=== PATIENT | male | born 1975 | race Caucasian/White ===

== ENCOUNTER 2017-09-20 21:59 | Inpatient (IN) ==
[2017-09-21 02:05] LABS: Basophils % 0.3 %; Eosinophils # 0.4 K/mcL (0.0-0.6); Eosinophils % 3.4 %; Hematocrit 41.3 % (37.5-50.1); Hemoglobin 14.3 g/dL (12.9-16.9); Immature Granulocytes % 0.3 % (0-4); Lymphocytes % 37.4 %; Mean Corpuscular HGB Conc 34.6 g/dL (31.6-35.5); Mean Corpuscular Hemoglobin 32.4 pg (28.0-33.3); Mean Corpuscular Volume 93.7 fL (83.0-100.0); Mean Platelet Volume 11.4 fL (9.4-12.4); Monocytes # 0.5 K/mcL (0.0-1.3); Monocytes % 4.7 %; Neutrophils # 5.7 K/mcL (1.6-8.9); Platelet Count 149 K/mcL (140-400); Red Blood Count 4.41 M/mcL (4.19-5.50); Red Cell Distribution Width 12.5 % (11.5-14.5); Segmented Neutrophils % 53.9 %
[2017-09-21 02:13] LABS: Prothrombin Time 11.6 Seconds (9.4-12.1)
[2017-09-21 02:15] LABS: Activated Partial Thrombo Time 62.5 Seconds (26.0-36.0)
[2017-09-21] MEDS: *HR* OxyCODONE/APAP 10/325 TABLET PO PRN ×3 (02:16→17:19)
[2017-09-21 02:30] LABS: BUN/Creatinine Ratio 17 (6-26); Blood Urea Nitrogen 20 mg/dL (6-20); Calcium 8.8 mg/dL (8.6-10.3); Carbon Dioxide 23 mEq/L (23-29); Chloride 110 mEq/L (98-107); Glucose 126 mg/dL (70-105); Osmolality,Calculated 292 (280-300); Potassium 3.1 mEq/L (3.5-5.1); Sodium 139 mEq/L (136-145); eGFR For African Americans > 60 (> 60); eGFR For Non-African Americans > 60 (> 60)
[2017-09-21 02:34] LABS: Troponin I 7.37 ng/mL (< 0.04)
[2017-09-21] MEDS ORDERED: Naloxone 0.4 MG/ML INJ IVP PRN (02:38)
[2017-09-21] MEDS ORDERED: Heparin 25,000 UNIT/500 ML D5W 25,000 UNIT/500 ML BAG IVC SCH (02:45)
[2017-09-21] MEDS ORDERED: *HR* Heparin 5,000 UNIT/ML VIAL IVP PRN ×2 (02:50)
[2017-09-21] MEDS ORDERED: *HR* Heparin 5,000 UNIT/ML VIAL IVP ONE (02:50)
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
[2017-09-21] MEDS ORDERED: 0.9 % Sodium Chloride 1,000 ML IVC SCH (08:45)
--- NOTE | 2017-09-21 08:58 | Pre-Sedation Evaluation ---
Pre-sedation evaluation - Pre-sedation checklist Date of procedure: 09/21/17 Procedure: [facility] Recent Vitals: Last Vital Signs Temp 97.8 F 09/21/17 07:12 Pulse 66 09/21/17 07:12 Resp 16 09/21/17 07:12 BP 118/61 09/21/17 07:12 Pulse Ox 96 09/21/17 07:12 H&P (including ROS) documented in medical record: Yes Previous reaction to sedatives/anesthetics: No Dietary Status: NPO after Midnight Airway Assessment: Patient can open mouth completely, TMJ function normal Dentition: No loose teeth or bridges ASA Classification *see protocol: CLASS II-Mild systemic disease, E-EMERGENCY- Add to any of the above to indicate emergent Plan of Care: Pt appropriate candidate for procedure/moderate/conscious sedation , Risks/benefits of procedure/sedation discussed w/ patient/family Cardiac Registry (Cardio Only) - Functional Capacity Functional Capacity: >=4 METS without symptoms - Clincal Frailty Scale Clinical Frailty Scale: Managing Well
[2017-09-21] MEDS: ALPRAZolam 1 MG TABLET PO PRN ×2 (08:59→17:22)
[2017-09-21] MEDS ORDERED: ISOVUE-370 200 ML INFUS..BTL IV ONE (09:01)
[2017-09-21] MEDS ORDERED: Verapamil 5 MG/2 ML VIAL ONE (09:01)
[2017-09-21] MEDS ORDERED: *HR* Heparin 10,000 UNIT/10 ML VIAL ONE (09:01)
[2017-09-21] MEDS ORDERED: Nitroglycerin 1,000 MCG/10 ML VIAL IV ONE (09:01)
[2017-09-21] MEDS ORDERED: Heparin 1,000 UNITS/500 mL 500 ML ONE (09:01)
[2017-09-21] MEDS ORDERED: 0.9 % Sodium Chloride 1,000 ML ONE ×2 (09:01→09:02)
[2017-09-21] MEDS: Aspirin 81 MG TAB.CHEW PO SCH (09:07)
[2017-09-21] MEDS ORDERED: *HR* Midazolam HCl 2 MG/2 ML VIAL ONE ×3 (09:35→09:58)
[2017-09-21] MEDS ORDERED: *HR* FentaNYL (PF) 100 MCG/2 ML VIAL ONE ×2 (09:35→09:58)
[2017-09-21] MEDS ORDERED: Tirofiban 12.5 MG/250ML 12.5 MG/250 ML BAG ONE (10:04)
[2017-09-21] MEDS ORDERED: *HR* Ticagrelor 90 MG TABLET ONE (10:19)
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
[2017-09-21] MEDS ORDERED: Acetaminophen 325 MG TABLET PO PRN (10:32)
[2017-09-21] MEDS ORDERED: Ondansetron 4 MG/2 ML VIAL IVP PRN (10:35)
--- NOTE | 2017-09-21 10:43 | Invasive Diagnostic Lab Proc ---
Name: Carmelina Fountain Date of Study: 09/21/2017 Date: 1975 Ht: 71.0in Medical Record#: [id number] Age: 42 Wt: 113.32lb Gender: Male BSA: 1.66 Order #: [id number] BMI: 15.81 Physicians Procedure Physician: Will Ariza MD, [facility] Referring MD: Referring MD: Staff Name Position Time In Yolette Boothe RN Umbrella Tipper Hand Marisol Breen RN Umbrella Tipper Hand Trang Wiley RT Monitor 09:33 AM Marisol Breen RN Umbrella Tipper Hand 09:33 AM Yolette Boothe RN Umbrella Tipper Hand 09:34 AM Cory Vaughan RT (R) Scrub 09:34 AM Indications Indication Non-Stemi Procedures Performed Procedure L HRT ARTERY/VENTRICLE ANGIO PRQ CARD SANTOSH STENT W/ANGIO 1 VSL Pre-Procedure Checklist Informed consent is complete signed and on chart. H&P is on chart. ID band is on and ID verified with patient. Patient NPO for procedure The procedure was described for the patient and questions were answered. Blood Pressure: 162/99 ECG is on chart. Rhythm: NSR Plan of Care Patient will tolerate the procedure without complications. Adequate level of comfort will be maintained. Hemodynamics will remain stable Patient will recover from procedure without complications. Respiratory function will be maintained. Cardiac rhythm will remain stable. Patient temperature will be maintained. Patient and/or family have verbalized understanding of the procedure. Patient Education Chief Complaint/Reason for Test: Cardiac Cath Developmental Category: Adult (18-64 years) Developmentally Appropriate for Age: Yes Learning Barriers: None Education Needs: Procedure Education Method: Verbal Information Taught: Cardiac Cath Educational Evaluation: Able to repeat information Intravenous Access Time IV Size Location DC'd Fluid/Drip Rate Units RN 20g 1 /" Patent On Arrival Lt Arm 0.9NaCl 25 ml/hr Allergies No Known Allergies Vital Signs Time BP (mmHg) HR (bpm) O2 Sat. RR (bpm) LOC 09:25 AM 118 / 61 66 96 % 16 5 = Fully awake and oriented or at pre-proc level 09:37 AM / % 5 = Fully awake and oriented or at pre-proc level 09:37 AM / % 4 = Oriented but drowsy 09:52 AM / % 4 = Oriented but drowsy 09:36 AM 162 / 99 61 100 % 09:40 AM 156 / 89 59 100 % 09:45 AM 163 / 98 58 96 % 09:50 AM 164 / 94 54 97 % 09:55 AM 166 / 92 62 93 % 10:00 AM 150 / 78 65 90 % 10:05 AM 154 / 94 62 93 % 10:10 AM 148 / 93 60 92 % 10:15 AM 144 / 77 61 91 % 10:20 AM 149 / 90 58 % Procedural Medications Time Medication Dose Units Method Given By 09:36 AM Oxygen 2 L/min nasal cannula Yolette Boothe RN 09:49 AM Lidocaine 2% 0.5 ml Subcutaneous Will Ariza MD, FAC 09:50 AM Heparin 2000 units Nitroglycerin 200 mcg Verapamil 2.5 mg Intraarterial Will Ariza MD, FAC 09:52 AM Versed 2 mg Intravenous Yolette Boothe RN 09:52 AM Fentanyl 50 mcg Intravenous Yolette Boothe RN 09:56 AM Versed 1 mg Intravenous Yolette Boothe RN 09:56 AM Fentanyl 25 mcg Intravenous Yolette Boothe RN 09:58 AM Nitroglycerin 200 mcg Intracoronary Will Ariza MD 10:04 AM Heparin 3000 units Intravenous Yolette Boothe RN 10:05 AM Aggrastat Bolus: 58 ml Intravenous Yolette Boothe RN 10:05 AM Aggrastat 12.5mg/250ml 10.5 ml/hr Intravenous Yolette Boothe RN 10:13 AM Nitroglycerin 200 mcg Intracoronary Will Ariza MD 10:25 AM Brilinta 180 mg Orally Yolette Boothe RN ASA Classification: CLASS II- Mild systemic disease (i.e. well-controlled diabetes, hypertension, asthma, cigarette smoking) Abilio Score Preprocedure Postprocedure Activity 2- Moves 4 extremities sustained head lift Activity 2- Moves 4 extremities sustained head lift Circulation 2- SBP +/= 20 points of pre-anesthetic level Circulation 2- SBP +/= 20 points of pre-anesthetic level Consciousness 2- Awake and alert oriented x 3 Consciousness 2- Awake and alert oriented x 3 O2 Saturation 2- Able to maintain O2 satruation of 92% on room air O2 Saturation 2- Able to maintain O2 satruation of 92% on room air Respiratory 2- Able to deep breathe and cough well Respiratory 2- Able to deep breathe and cough well Total Score 10 Total Score 10 Contrast Agent: Isovue Diagnostic Contrast: 74 ml Total Contrast: 74 ml Fluoro Dose: 5362 mGy Activated Clotting Time Time Seconds to Clot 10:04 AM 165 Procedure Log Time Note Enter By 09:33 AM CathStat 09:33 AM Pt arrived to seed laboratory assistant 2 at 09:33 09:33 AM Trang Wiley RT Position: Monitor Time in: 09:33 ner 09:34 AM Marisol Breen RN Position: Umbrella Tipper Hand Time in: :33 ner 09:34 AM Yolette Boothe RN Position: Umbrella Tipper Hand Time in: :34 09:34 AM Cory Vaughan RT (R) Position: Scrub Time in: :34 09:34 AM Patient charges- Angio tray pack, Navilyst 3mm J, Pulse Oximetry and ACIST tubing and transducer kkall:34 AM Case Delayed No kk:34 AM Hair removed from procedure site in holding area using clippers. Right wrist prepped with Chloraprep by Cory Vaughan (R), then patient was draped. Skin intact. kk:34 AM Physician arrived :34 :34 AM ASA Class CLASS II- Mild systemic disease (i.e. well-controlled diabetes, hypertension, asthma, cigarette smoking) kkallner :34 AM Meet and greet completed :34 AM Sign in performed according to hospital policy. kk 09:34 AM Procedure start :34 :34 AM Vitals capture started with the following parameters, Patient=Adult, Interval=5 min, Initial Obfobjdg=701 mmHg, Deflation Rate=5 mmHg, Cuff placed on Right Arm 09:36 AM HR=61 bpm, JVBW=922/99 mmhg, ScR8=060 % 09:36 AM Time: 09:36 Oxygen on at 2 L/min per nasal cannula by Yolette Boothe RN allner 09:37 AM Time: 09:37 Patient comfortable and pain free: Yes all:37 AM Time: 09:37LOC: 5 = Fully awake and oriented or at pre-proc level [email or web address] 09:37 AM Clinical Presentation: Non-STEMI [email or web address] 09:40 AM HR=59 bpm, OAAT=521/89 mmhg, EiB6=623.0 % 09:45 AM HR=58 bpm, GQNE=597/98 mmhg, SpO2=96.0 % 09:46 AM Pressure channel 1 zeroed. 09:49 AM Time out performed according to hospital policy 09:50 AM Time: 09:49 .5 ml Lidocaine 2% to right radial Subcutaneous Given by Will Ariza MD, FACC 09:50 AM HR=54 bpm, ADED=127/94 mmhg, SpO2=97.0 % 09:52 AM Time: 09:37 Patient comfortable and pain free: Yes 09:52 AM Time: 09:52 Versed 2 mg Intravenous Given by Yolette Boothe RN 09:52 AM Time: 09:52 Fentanyl 50 mcg Intravenous Given by Yolette Boothe RN alfred 09:52 AM Time: 09:37LOC: 4 = Oriented but drowsy 09:53 AM Access obtained by percutaneous puncture. 6Fr 10cm Terumo Glidesheath sheath placed in right Radial artery. [id number] 09:54 AM Time: 09:50 Patient given 2000 units Heparin, 200 mcg Nitroglycerin, and 2.5 mg Verapamil Intraarterial by Will Ariza MD, [facility]. This is given to reduce risk of vessel spasm and thrombosis. kk 09:55 AM 5Fr TIG catheter inserted over the wire [facility] 09:55 AM wire removed 09:55 AM 0.035 145cm VSI Avinash-Torque wire [id number] all 09:55 AM HR=62 bpm, IGHD=335/92 mmhg, SpO2=93.0 % 09:56 AM Time: 09:56 Versed 1 mg Intravenous Given by Yolette Boothe RN :56 AM Time: 09:56 Fentanyl 25 mcg Intravenous Given by Yolette Boothe RN 09:56 AM wire removed 09:56 AM Recorded Pressure: Ao, HR=62, Condition=Condition 1 (Aorta) Ao 130/91/109 09:57 AM LCA angiography performed in multiple views. kk 09:57 AM TIG repositioned into RCA kkall 09:59 AM Time: 09:58 Nitroglycerin 200 mcg Intracoronary Given by Will Ariza MD alfred 09:59 AM Recorded Pressure: Ao, HR=64, Condition=Condition 1 (Aorta) Ao 119/83/101 10:00 AM Catheter removed [email or web address] 10:00 AM Coronary Dominance: right [email or web address] 10:00 AM 5Fr Pigtail catheter inserted over the wire DN [email or web address] 10:00 AM HR=65 bpm, BBNU=999/78 mmhg, SpO2=90.0 % 10:00 AM Catheter selectively placed in left ventricle [email or web address] 10:01 AM pressures recorded [email or web address] 10:01 AM Recorded Pressure: LV, HR=72, Condition=Condition 1 (Left Ventricle) LV 115/17/22 10:01 AM Recorded Pressure: LV, Ao, HR=65, Condition=Condition 1 (Left Ventricle) LV 135/7/18, (Aorta) Ao 134/66/97 10:02 AM Catheter removed [email or web address] 10:02 AM Lesion found in Mid LAD. Pre Stenosis: 60 Pre RICK Flow: [email or web address] 10:02 AM Lesion found in Mid RCA. Pre Stenosis: 100 Pre RICK Flow: 0: No Flow/No perfusion [email or web address] 10:02 AM Left Main Coronary Artery with 0% stenosis [email or web address] 10:02 AM Proximal Left Anterior Descending Coronary Artery with 0% stenosis. If graft is supplying this territory, 0 % stenosis. [email or web address] 10:02 AM Mid/Distal Left Anterior Descending Coronary Artery and diagonal branches with 60% stenosis. If graft is supplying this area, 0 % stenosis kkallner 10:02 AM Circumflex, Obtuse Marginal, Left Posterior Descending, and Left Posterolateral Coronary Arteries with 0 % stenosis. If graft is supplying this area, 0 % stenosis kkallner 10:02 AM Right Coronary, Right Posterior Descending Arteries with Right Posterolateral and Acute Marginal branches with 100 % stenosis. If graft is supplying this area, 0 % stenosis kkallner 10:02 AM Ramus with 0% stenosis. If graft is supplying this area, 0 % stenosis kkallner 10:03 AM ACT drawn kkallner 10:03 AM PCI lesion in Mid RCA. Pre Stenosis: 100 Pre RICK Flow: 0: No Flow/No perfusion kkallner 10:03 AM 6Fr JR 4 Runway guide catheter was used to cannulate the PCI vessel successfully. reused? No kkallner 10:04 AM wire removed kkallner 10:04 AM At 10:04 the ACT was 165 seconds. [email or web address] 10:05 AM Time: 10:04 Heparin 3000 units Intravenous Given by Yolette Boothe RN kkallner 10:05 AM HR=62 bpm, VIRN=033/94 mmhg, SpO2=93.0 % 10:05 AM Time: 10:05 Aggrastat Bolus: 58 ml Intravenous Given by Yolette Boothe RN Doe pump [email or web address] 10:05 AM .014 Prowater 180cm guide wire across target lesion- successful. reused? No [email or web address] 10:05 AM Time: 10:05 Aggrastat 12.5mg/250ml 10.5 ml/hr Intravenous Given by Yolette Boothe RN Doe pump [email or web address] 10:06 AM 2.5 mm x 12 mm Emerge Monorail balloon across target lesion- successful. reused? No [email or web address] 10:07 AM Time: 09:52 Patient comfortable and pain free: Yes [email or web address] 10:07 AM Balloon inflated @ 6 kaci for 12 seconds kkallner 10:08 AM Time: 09:52LOC: 4 = Oriented but drowsy [email or web address] 10:08 AM Balloon inflated @ 12 kaci for 12 seconds [email or web address] 10:08 AM Balloon inflated @ 10 kaci for 18 seconds kkallner 10:09 AM Recorded Pressure: Ao, HR=60, Condition=Condition 1 (Aorta) Ao 125/85/104 10:09 AM Balloon inflated @ 10 kaci for 13 seconds [email or web address] 10:10 AM HR=60 bpm, JLJZ=890/93 mmhg, SpO2=92.0 % 10:11 AM Balloon catheter removed intact. [email or web address] 10:11 AM 3.5mm x 20mm Synergy drug-eluting stent across target lesion- successful Lot [id number] [email or web address] 10:12 AM Stent deployed @ 16 kaci for 17 seconds [email or web address] 10:13 AM Time: 10:13 Nitroglycerin 200 mcg Intracoronary Given by Will Ariza MD kk 10:15 AM Stent delivery system removed intact. [email or web address] 10:15 AM guide wire removed kkallner 10:15 AM HR=61 bpm, PQMY=866/77 mmhg, SpO2=91.0 % 10:15 AM catheter and wire removed kkallner 10:17 AM Procedure completed at 10:17 09/21/2017 [email or web address] 10:17 AM Did you address RICK flow and Dominance? Yes [email or web address] 10:19 AM Sign out completed: Radiation Dose 779.84 mGy, 5361.68 cGy/cm2 Fluoro Time: 4.6 Isovue 370 - 200ml contrast 74 ml given by Will Ariza MD, FAC. Complications: NoneCardiac Rehab Consult needed: YesConfirmed administered medications: Yes [email or web address] 10:19 AM Isovue 370 - 200ml,1 Bottle(s) used. [email or web address] 10:19 AM 11 ml air in Vasc Band. [email or web address] 10:19 AM Estimated Blood Loss: minimal kkallner 10:20 AM Post ECG NSR kkallner 10:20 AM Post Blood Pressure 144/77 kkallner 10:20 AM 10:20 Post Pulses Rt Radial 1+ [email or web address] 10:20 AM HR=58 bpm, IATQ=357/90 mmhg 10:22 AM Time: 10:07 Patient comfortable and pain free: Yes [email or web address] 10:22 AM Information taught Cardiac Cath and Vasc Band kkallner 10:23 AM Information taught PLASTIC DESIGN APPLIER/Stent kkallner 10:23 AM Education needs Procedure, Plan of Care, and Responsibilities of Patient in Care [email or web address] 10:23 AM Learning barriers :None kkallner 10:23 AM Education Methods Verbal kkallner 10:23 AM Education evaluation Able to repeat information [email or web address] 10:23 AM Site status No bleeding/hematoma - Rt Wrist as reported by Cory Vaughan RT (R) at 10:23 [email or web address] 10:24 AM Report given to Bekah CARDONA Pt taken to 2NE Room #35. 10:23 [email or web address] 10:26 AM Time: 10:25 Brilinta 180 mg Orally Given by Yolette Boothe RN kkallner 10:26 AM Plavix, Effient or Brilinta given Yes kkallner 10:26 AM Delay to floor No [email or web address] 10:27 AM Patient out of room: 10:27 kkallner 10:27 AM Family placed in consult room. [email or web address] 10:27 AM Complications: None [email or web address] 10:27 AM Fluoro Time: 4.6 kkallner 10:27 AM Isovue 370 - 200ml contrast 74 ml given by Will Ariza. [email or web address] 10:27 AM Radiation Dose 779.84 mGy kkallner 10:28 AM Lesion found in Distal RCA. Pre Stenosis: 60 Pre RICK Flow: [email or web address] 10:29 AM Lesion found in Right PDA. Pre Stenosis: 40 Pre RICK Flow: [email or web address] 10:30 AM Lesion found in RPLB. Pre Stenosis: 50 Pre RICK Flow: [email or web address] Complications Complication None None Hemodynamics Pressures Site Systolic/A Wave Diastolic/V Wave Mean AO 130 91 109 AO 119 83 101 LV 115 17 22 LV 135 7 18 AO 134 66 97 AO 125 85 104 Post Procedure Information Blood Pressure: 144/77 mmHg Rhythm: NSR Post procedural instructions were given Site Checks Time Location Status Staff Sheath In? Note 10:23 AM Rt Wrist No bleeding/hematoma Cory Vaughan RT (R) Pulses Time Site Pre-Procedure Post-Procedure Note 09/21/2017 9:26:00 AM Bilateral DP & PT 2+ 09/21/2017 9:26:00 AM 10:20:00 AM Rt Radial 1+ Updated by Trang Wiley RT (R) on 09/21/2017 10:34:06 AM electronically signed on 09/21/2017 10:34:36 AM with status of Final
[2017-09-21] MEDS ORDERED: Tirofiban 12.5 MG/250ML 12.5 MG/250 ML BAG IVC SCH (10:45)
--- NOTE | 2017-09-21 12:10 | Event Note ---
Date of Encounter: 09/21/17 Time of Encounter: 12:00 - Cardiology Event Note Patient threatening to leave AMA, states wants to smoke. Offered nicotine replacement, patient refuses. Will order patch in case he elects to stay overnight as recommended s/p PCI to RCA. Discussed with Dr. Covarrubias and Dr. Ariza. Rx sent to [facility] for brilinta and aspirin. Recommended uninterrupted DAPT (asa + brilinta) for a minimum of 1 year. Will coordinate outpatient f/u.
[2017-09-21] MEDS ORDERED: Perflutren Lipid Microsphere 1.3 ML in 0.9 % Sodium Chloride 8.7 ML IVP ONE (17:06)
[2017-09-21] MEDS: Nicotine 21 MG PATCH.TD24 TD SCH (17:19)
[2017-09-21] MEDS: *HR* Ticagrelor 90 MG TABLET PO SCH (19:59)
[2017-09-21] MEDS: amLODIPine 5 MG TABLET PO SCH (19:59)
[2017-09-22 04:52] LABS: BUN/Creatinine Ratio 14 (6-26); Blood Urea Nitrogen 15 mg/dL (6-20); Calcium 9.5 mg/dL (8.6-10.3); Carbon Dioxide 19 mEq/L (23-29); Chloride 111 mEq/L (98-107); Glucose 110 mg/dL (70-105); Osmolality,Calculated 283 (280-300); Potassium 3.7 mEq/L (3.5-5.1); Sodium 136 mEq/L (136-145); eGFR For African Americans > 60 (> 60); eGFR For Non-African Americans > 60 (> 60)
--- NOTE | 2017-09-22 06:20 | Electrocardiograph Report ---
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
[2017-09-22 07:06] VITALS: BP 133/81
--- NOTE | 2017-09-22 08:15 | Internal Med Progress Note ---
Date of Encounter: 09/22/17 - Assessment and plan (1) NSTEMI (non-ST elevated myocardial infarction) Current Visit: Yes Status: Acute (2) Chest pain Current Visit: Yes Status: Acute Qualifiers: Chest pain type: chest pain due to myocardial ischemia Ischemic chest pain type: unstable angina pectoris Qualified Code(s): I20.0 - Unstable angina (3) Elevated troponin Current Visit: Yes Status: Acute (4) Nicotine dependence, uncomplicated Current Visit: Yes Status: Acute Qualifiers: Nicotine product type: cigarettes Qualified Code(s): F17.210 - Nicotine dependence, cigarettes, uncomplicated (5) Hypertension Current Visit: Yes Status: Acute Qualifiers: Hypertension type: essential hypertension Qualified Code(s): I10 - Essential (primary) hypertension (6) Bradycardia Current Visit: Yes Status: Acute (7) DVT prophylaxis Current Visit: Yes Status: Acute (8) PTSD (post-traumatic stress disorder) Current Visit: Yes Status: Acute (9) Chronic pain Current Visit: Yes Status: Acute Qualifiers: Chronic pain type: other chronic pain Qualified Code(s): G89.29 - Other chronic pain (10) GERD (gastroesophageal reflux disease) Current Visit: Yes Status: Acute Qualifiers: Esophagitis presence: esophagitis presence not specified Qualified Code(s) : K21.9 - Gastro-esophageal reflux disease without esophagitis (11) Hypokalemia Current Visit: Yes Status: Acute - Time Spent With Patient Total time spent is greater than 50% in coordination of care (as documented) at patient's floor/unit and/or counseling patient: - Constitutional Vitals: Temp Pulse Resp BP Pulse Ox 97.8 F 60 16 133/81 96 09/22/17 07:03 09/22/17 07:03 09/22/17 07:03 09/22/17 07:03 09/22/17 07:03 General appearance: Present: mild distress, A&O X 3, pleasant Internal Medicine: Result - Labs CBC & Chem 7: 09/21/17 01:56 09/22/17 04:20 Labs: BMP 09/22/17 04:20 Sodium 136 Potassium 3.7 Chloride 111 H Carbon Dioxide 19 L BUN 15 Creatinine 1.11 Glucose 110 H Calcium 9.5 Cardiac Enzymes 09/21/17 Range/Units 08:03 Troponin I 5.42 H* (< 0.04) ng/mL - ABG Interpretation ABG results: PT/INR, D-dimer PT 11.6 Seconds (9.4-12.1) 09/21/17 01:55 D-Dimer 249 ng/mLFEU (0-500) 09/21/17 11:09 Consult Discharge Plan - Plan Instructions: Myocardial Infarction (DC), Chest Pain (DC), Chronic Hypertension (DC), Cigarette Smoking and Your Health, Exchange Specialist (GEN) Referrals: Delia Dow CNP [Primary Care Provider] -
--- NOTE | 2017-09-22 09:09 | Discharge Summary ---
<Juan Pantoja - Last Filed: 09/22/17 19:06> Orders not resulted at time of discharge: Pending orders 09/21/17 10:35 ECG 12 lead ECG [ECG] Stat 09/22/17 06:00 ECG 12 lead ECG [ECG] AM 0600 Date of Encounter: 09/22/17 - Discharge Diagnosis (1) NSTEMI (non-ST elevated myocardial infarction) Priority: Primary Status: Acute (2) Chest pain Priority: Primary Status: Acute Qualifiers: Chest pain type: chest pain due to myocardial ischemia Ischemic chest pain type: unstable angina pectoris Qualified Code(s): I20.0 - Unstable angina (3) Elevated troponin Priority: Secondary Status: Acute (4) Nicotine dependence, uncomplicated Priority: Secondary Status: Chronic Qualifiers: Nicotine product type: cigarettes Qualified Code(s): F17.210 - Nicotine dependence, cigarettes, uncomplicated (5) Hypertension Priority: Secondary Status: Chronic Qualifiers: Hypertension type: essential hypertension Qualified Code(s): I10 - Essential (primary) hypertension (6) Bradycardia Priority: Secondary Status: Resolved (7) DVT prophylaxis Status: Acute (8) PTSD (post-traumatic stress disorder) Priority: Secondary Status: Chronic (9) Chronic pain Status: Acute Qualifiers: Chronic pain type: other chronic pain Qualified Code(s): G89.29 - Other chronic pain (10) GERD (gastroesophageal reflux disease) Priority: Secondary Status: Chronic Qualifiers: Esophagitis presence: esophagitis presence not specified Qualified Code(s) : K21.9 - Gastro-esophageal reflux disease without esophagitis (11) Hypokalemia Priority: Secondary Status: Resolved (12) Tobacco abuse Priority: Secondary Status: Chronic Hospital course: Mr. Fountain is a 42 year old male - Time Spent with Patient Total time spent providing and/or coordinating discharge services: 29min - Discharge Medications Prescriptions: Aspirin Enteric Coated [Aspirin EC] 81 mg PO DAILY #30 tablet. Atorvastatin [Lipitor] 40 mg PO HS #30 tablet Ticagrelor [Brilinta] 90 mg PO BID #60 tablet Home Medications: ALPRAZolam [Xanax 1 MG Tablet] 1 mg PO TID PRN 07/22/16 [History] Amlodipine Besylate 10 mg PO DAILY 07/22/16 [History] Carvedilol [Coreg] 12.5 mg PO BID 07/22/16 [History] Omeprazole [PriLOSEC] 20 mg PO BID PRN 07/22/16 [History] OxyCODONE/APAP 10/325 [Percocet 10/325 MG] 1 each PO Q6HR PRN #39 tablet [Rx] Atorvastatin [Lipitor] 40 mg PO HS 09/21/17 [History] Gabapentin [Neurontin] 600 mg PO BID 09/21/17 [History] Aspirin 81 mg PO DAILY tab.chew 09/22/17 [Rx] Aspirin Enteric Coated [Aspirin EC] 81 mg PO DAILY #30 tablet. 09/22/17 [Rx] Atorvastatin [Lipitor] 40 mg PO HS tablet 09/22/17 [Rx] Atorvastatin [Lipitor] 40 mg PO HS #30 tablet 09/22/17 [Rx] Ticagrelor [Brilinta] 90 mg PO BID tablet 09/22/17 [Rx] Ticagrelor [Brilinta] 90 mg PO BID #60 tablet 09/22/17 [Rx] Allergies/Adverse Reactions: 3 Allergy/AdvReac Type Severity Reaction Status Date / Time No Known Allergies Allergy Verified 09/21/17 08:49 Date of admission: 09/21/17 02:38 Primary care physician: TONY Wall Consults: 09/21/17 04:31 Consult to Cardiology [CONS] Routine Comment: Consulting Provider: Cardiology Lindsay Reason for Consult: NSTEMI, Elevated troponins, chest pain Call Completed: No 09/21/17 08:37 Consult to Cardiac Rehabilitation-Phase1 [CONS] Routine Comment: Reason for Consult: NSTEMI Call Completed: No 09/21/17 10:35 Consult to Cardiac Rehabilitation-Phase1 [CONS] Routine Comment: Reason for Consult: post op PCI Call Completed: Yes - Constitutional Vitals: Temp Pulse Resp BP Pulse Ox 97.8 F 60 16 133/81 96 09/22/17 07:03 09/22/17 07:03 09/22/17 07:03 09/22/17 07:03 09/22/17 07:03 - Patient Status Disposition: Home, Self-Care Condition: Good - Discharge Instructions Instructions: Aspirin (By mouth), Atorvastatin (By mouth), Ticagrelor (By mouth ), Myocardial Infarction (DC), Chest Pain (DC), Chronic Hypertension (DC), Cigarette Smoking and Your Health, 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 Begin Brillenta, Aspirin, and Lipitor. Follow up with PCP as needed. Follow up with associate buyer in 1 week. If you experience any return of chest pain, shortness of breath, or other symptoms, please call 911 or go to the ER. - Attending Attestation I examined this patient and my medical decision-making was reviewed with the Resident Physician on 09/22/17. I agree with the documented findings, disposition and treatment plan as described except to the extent set forth below. Mr Fountain was admitted for acute NSTEMI. He was seen by cardiology and underwent cath with PCI. He continues to smoke. He is afebrile and feels ready to discharge home. Exam alert Comfortable Mucus membranes dry Heart reg No wheeze Plan D/C home today Educated on taking meds. <Luciano Leslie - Last Filed: 09/23/17 17:47> - NOTES TO OUTPATIENT PROVIDER Notes to Outpatient Provider: Pt admitted on 09/21 for chest pain. Was found to have NSTEMI. Had LHC with stent placement. Discharged with ASA and Brilenta as new medications. Orders not resulted at time of discharge: Pending orders 09/21/17 10:35 ECG 12 lead ECG [ECG] Stat 09/22/17 06:00 ECG 12 lead ECG [ECG] AM 0600 Date of Encounter: 09/23/17 Time of Encounter: 09:04 - Discharge Diagnosis (1) NSTEMI (non-ST elevated myocardial infarction) Priority: Primary Status: Acute Assessment and Plan: LHC with stent placement on 09/21 Brilenta and ASA therapy per cardio (2) Chest pain Priority: Primary Status: Acute Qualifiers: Chest pain type: chest pain due to myocardial ischemia Ischemic chest pain type: unstable angina pectoris Qualified Code(s): I20.0 - Unstable angina (3) Elevated troponin Priority: Secondary Status: Acute (4) Nicotine dependence, uncomplicated Priority: Secondary Status: Chronic Assessment and Plan: cessation counseling performed Qualifiers: Nicotine product type: cigarettes Qualified Code(s): F17.210 - Nicotine dependence, cigarettes, uncomplicated (5) Hypertension Priority: Secondary Status: Chronic Qualifiers: Hypertension type: essential hypertension Qualified Code(s): I10 - Essential (primary) hypertension (6) PTSD (post-traumatic stress disorder) Status: Chronic (7) Chronic pain Priority: Secondary Status: Acute Qualifiers: Chronic pain type: other chronic pain Qualified Code(s): G89.29 - Other chronic pain (8) GERD (gastroesophageal reflux disease) Priority: Secondary Status: Chronic Qualifiers: Esophagitis presence: esophagitis presence not specified Qualified Code(s) : K21.9 - Gastro-esophageal reflux disease without esophagitis Hospital course: Mr. Fountain is a 42 year old male Discharge discussed with: patient, family - Time Spent with Patient Total time spent providing and/or coordinating discharge services: Date of admission: 09/21/17 02:38 Primary care physician: TONY Wall Consults: 09/21/17 04:31 Consult to Cardiology [CONS] Routine Comment: Consulting Provider: Cardiology Lindsay Reason for Consult: NSTEMI, Elevated troponins, chest pain Call Completed: No 09/21/17 08:37 Consult to Cardiac Rehabilitation-Phase1 [CONS] Routine Comment: Reason for Consult: NSTEMI Call Completed: No 09/21/17 10:35 Consult to Cardiac Rehabilitation-Phase1 [CONS] Routine Comment: Reason for Consult: post op PCI Call Completed: Yes Discharging clinician: Luciano Leslie - Constitutional Vitals: Temp Pulse Resp BP Pulse Ox 97.8 F 60 16 133/81 96 09/22/17 07:03 09/22/17 07:03 09/22/17 07:03 09/22/17 07:03 09/22/17 07:03 General appearance: Present: mild distress, A&O X 3, pleasant Exam: Head: normocephalic, atraumatic, no lesions noted Eyes: pupils PERRL, EOMI, pink conjunctiva, sclera anicteric Neck: supple, trachea midline Respiratory: CTA bilaterally. non-labored breathing. No wheezes, rales, or rhonchi noted. Heart: RRR, (+)S1, (+)S2. No murmurs, clicks, or rubs noted. GI: abdomen soft, nontender, slightly distended. Normoactive bowel sounds. Extremities: warm, pulses palpable and symmetrical. No cyanosis or edema noted. Neuro: Alert and oriented 3, no focal deficits, no speech difficulty. Skin: Warm, dry, intact. - Patient Status Functional capacity at discharge: independent ambulation Overall status at discharge: patient is back to baseline - Diet and Activity Activity: as per the cardiac rehab Diet: low fat, low cholesterol
[2017-09-22] MEDS: *HR* Ticagrelor 90 MG TABLET PO SCH (10:04)
[2017-09-22] MEDS: Nicotine 21 MG PATCH.TD24 TD SCH (10:05)
[2017-09-22] MEDS: amLODIPine 5 MG TABLET PO SCH (10:05)
[2017-09-22] MEDS: Aspirin 81 MG TAB.CHEW PO SCH (10:05)
--- NOTE | 2017-09-22 10:11 | Cardiology Progress Note ---
Date of Encounter: 09/22/17 Time of Encounter: 08:00 Assessment and Plan (1) NSTEMI (non-ST elevated myocardial infarction) Current Visit: Yes Status: Acute Troponin 15.7 upon arrival to [facility], ischemic changes noted on ECG. Troponin 7.37 upon arrival to [facility]. Continued chest pain on admission so patient was taken to cardiac catheterization lab for LHC. S/p LHC with PTCA and SANTOSH to the mRCA 100% stenosis. There was borderline mLAD disease, 60% stenosis in the distal RCA, and 60-70% stenosis in the RPL remaining. Medical management recommended with consideration of PCI in the future if he develops symptoms. Denies recurrent chest pain. There was no complication from the procedure. Denies recurrent chest pain. No complications from right radial access site. Importance of DAPT with asa and brilinta uninterrupted for minimum of one year discussed and he voiced understanding. Reviewed potential outcomes with non-compliance with medications such as recurrent HI, CHF, or even . Continue statin and CCB. No bb due to HR in the 50's. Activity restrictions reviewed as stated above.Cardiac rehab ordered. Cardiology will sign off. Out-pt f/u will be coordinated by [facility]. Discussion w patient/family: The assessment and plan as outlined above was discussed with the patient and/or family members who expressed understanding and agreement. All questions were answered. Thank you for involving us in the care of your patient. Please call with any questions. Subjective Principal diagnosis: NSTEMI Interval history: Mr. Lawrence pulled off his cardiac technologist and dressing over his right radial access site. Denies chest pain. States he is going home right now. Objective Vital Signs, Last 4 Hours Temp Pulse Resp BP Pulse Ox 09/22/17 07:03 97.8 F 60 16 133/81 96 General: Conversant, No Apparent Distress HEENT: Atraumatic, Normocephaly, Mucus Membranes Moist Neck: No JVD Cardiac: Reg Rate and Rhythm Lungs: Other (respirations easy, no distress noted) Neuro: Alert and responsive, No focal deficits noted Abdomen: Soft, Non-Tender Skin: No rashes noted on visualized skin Musculoskeletal: No Chest Wall Tenderness Extremities: No Clubbing, No Cyanosis, No Edema, Normal Pulses, Other (No problem with right radial access site. 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 Begin Brillenta, Aspirin, and Lipitor. Follow up with PCP as needed. Follow up with wire technician in 1 week. If you experience any return of chest pain, shortness of breath, or other symptoms, please call 911 or go to the ER. Referrals: Delia Dow CNP [Primary Care Provider] - 10/06/17 3:00 pm Prescriptions: Aspirin Enteric Coated [Aspirin EC] 81 mg PO DAILY #30 tablet. Atorvastatin [Lipitor] 40 mg PO HS #30 tablet Ticagrelor [Brilinta] 90 mg PO BID #60 tablet
[2017-09-22] MEDS ORDERED: amLODIPine 5 MG TABLET PO SCH (18:10)
== END 2017-09-22 10:53 | disposition home or self-care (01) | DRG 247 ==
LOC: 2NENU → SUATTDRO 09-21 02:38
PROVIDERS: ADMIT Family Medicine; ATTEND Internal Medicine

== ENCOUNTER 2018-09-13 17:54 | Observation (INO) ==
[2018-09-13] MEDS ORDERED: Acetaminophen 325 MG TABLET PO ONE (18:18)
[2018-09-13 18:21] LABS: Basophils % 0.4 %; Eosinophils # 0.5 K/mcL (0.0-0.6); Eosinophils % 6.1 %; Hematocrit 43.3 % (37.5-50.1); Hemoglobin 14.8 g/dL (12.9-16.9); Immature Granulocytes % 0.3 % (0-4); Lymphocytes # 3.1 K/mcL (0.6-4.6); Lymphocytes % 39.4 %; Mean Corpuscular HGB Conc 34.2 g/dL (31.6-35.5); Mean Corpuscular Hemoglobin 32.5 pg (28.0-33.3); Mean Corpuscular Volume 95.2 fL (83.0-100.0); Mean Platelet Volume 11.1 fL (9.4-12.4); Monocytes # 0.5 K/mcL (0.0-1.3); Monocytes % 6.3 %; Neutrophils # 3.8 K/mcL (1.6-8.9); Platelet Count 211 K/mcL (140-400); Red Blood Count 4.55 M/mcL (4.19-5.50); Red Cell Distribution Width 12.6 % (11.5-14.5); Segmented Neutrophils % 47.5 %; White Blood Count 7.9 K/mcL (4.3-11.1)
[2018-09-13 18:42] LABS: BUN/Creatinine Ratio 18 (6-26); Blood Urea Nitrogen 23 mg/dL (6-20); Calcium 9.3 mg/dL (8.6-10.3); Carbon Dioxide 24 mEq/L (23-29); Chloride 107 mEq/L (98-107); Glucose 92 mg/dL (70-105); Magnesium 1.8 mg/dL (1.6-2.6); Osmolality,Calculated 291 (280-300); Potassium 4.1 mEq/L (3.5-5.1); Sodium 139 mEq/L (136-145); eGFR For African Americans > 60 (> 60); eGFR For Non-African Americans > 60 (> 60)
[2018-09-13 18:43] LABS: Troponin I < 0.03 ng/mL (< 0.04)
--- NOTE | 2018-09-13 19:02 | Emergency Department Note ---
Disposition Clinical Impression: Chest pain Qualifiers: Chest pain type: other chest pain Qualified Code(s): R07.89 - Other chest pain Disposition: Admitted As Inpatient Condition: Fair Time of Disposition: 20:31 Chest Pain HPI - General Chief Complaint: ED Chest Pain Stated Complaint: chest pain,DWIGHT Time Seen by Provider: 09/13/18 17:55 Source: patient Mode of arrival: ambulatory Limitations: no limitations Vital Signs Reviewed: Yes Nursing Notes Reviewed: Yes - History of Present Illness HPI Narrative: 43 yo male with past medical history of diabetes, hypertension, hyperlipidemia, coronary artery disease with one stent placed 11 months ago presents to the emergency department with chest pain and difficulty in breathing that started this morning. Patient states that he noticed chest pressure, like a rope around his chest, that started at approximately 5:00 this morning. This felt exactly the same as when he had a heart attack 11 months ago. He initially went to [facility] this morning where they did a cardiac workup on him which was negative. 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 He sees Dr. Ariza as his crew team member and this is the physician that placed a stent previously. He was given nitroglycerin and aspirin at [facility] and states the nitroglycerin did not help his chest pain but just gave him a severe headache. He denies fever, chills, cough, abdominal pain, nausea and vomiting. He did feel sweaty earlier when he felt this chest pressure. The chest pressure has been constant since onset. Severity scale (1-10): 5 - Related Data Home Medications Medication Instructions Recorded Confirmed ALPRAZolam [Xanax 1 MG Tablet] 1 mg PO BID PRN 07/22/16 09/14/18 Amlodipine Besylate 10 mg PO DAILY 07/22/16 09/14/18 Carvedilol [Coreg] 12.5 mg PO BID 07/22/16 09/14/18 Omeprazole [PriLOSEC] 20 mg PO BID PRN 07/22/16 09/14/18 Atorvastatin [Lipitor] 40 mg PO HS 09/21/17 09/14/18 Gabapentin [Neurontin] 600 mg PO TID 09/21/17 09/14/18 Metformin HCl 1,000 mg PO BID 09/25/17 09/14/18 Vortioxetine Hydrobromide 10 mg PO DAILY 09/25/17 09/14/18 [Trintellix] Lisinopril [Zestril] 40 mg PO DAILY 09/13/18 09/14/18 Spironolactone [Aldactone] 12.5 mg PO DAILY #0 09/13/18 09/14/18 ALPRAZolam [Xanax 1 MG Tablet] 0.5 mg PO DAILY PRN 09/14/18 09/14/18 Ibuprofen [Motrin] 600 mg PO DAILY PRN 09/14/18 09/14/18 Tizanidine HCl 4 mg PO BID PRN 09/14/18 09/14/18 Previous Rx's Medication Instructions Recorded Aspirin Enteric Coated [Aspirin EC] 81 mg PO DAILY #30 tablet. 09/22/17 Ticagrelor [Brilinta] 90 mg PO BID #60 tablet 09/22/17 Nicotine Patch [Nicoderm] 21 mg TD DAILY #60 patch.td24 09/14/18 Nitroglycerin 0.4 mg SL Q5MPRN PRN #60 tab.subl 09/14/18 Allergies Allergy/AdvReac Type Severity Reaction Status Date / Time No Known Allergies Allergy Verified 09/25/17 16:28 All systems ED: reviewed and negative except as stated. Review of Systems: As Per HPI Constitutional: Denies: fever, chills, weakness Cardiovascular: Reports: chest pain. Denies: palpitations, dyspnea on exertion, orthopnea, edema Respiratory: Denies: cough, dyspnea, wheezes Gastrointestinal: Denies: abdominal pain, nausea, vomiting, diarrhea Genitourinary: Denies: dysuria, hematuria Musculoskeletal: Denies: back pain, neck pain Integumentary: Denies: rash Neurological: Denies: headache Endocrine: Denies: fatigue Chest Pain PMH - Past Medical History Medical history: Reports: coronary artery disease, diabetes, hyperlipidemia, hypertension, myocardial infarction, renal disease Surgical history: Reports: non-contributory Psychiatric history: Reports: anxiety, PTSD, previous psychiatric hospitalization - Social History Smoking Status: Current every day smoker Alcohol use: Reports: occasionally Drug use: Reports: none Physical Exam - General Limitations: no limitations General appearance: alert, in no apparent distress - Head Head exam: atraumatic, normocephalic - Eye Eye exam: Present: normal appearance, EOMI - ENT ENT exam: normal exam, normal oropharynx - Neck Neck exam: Present: normal inspection. Absent: tenderness, lymphadenopathy - Chest Chest inspection: Present: normal inspection. Absent: tenderness - Respiratory Respiratory exam: Present: normal lung sounds bilaterally. Absent: wheezes - Cardiovascular Cardiovascular exam: Present: regular rate, normal rhythm - Abdominal Exam Abdominal exam: Present: soft, Non-Tender. Absent: distention, guarding, rebound, rigidity - Extremities Exam Extremities exam: Present: normal inspection. Absent: tenderness, pedal edema - Neurological Exam Neurological exam: Present: alert, oriented X3 - Psychiatric Psychiatric exam: Present: normal affect, normal mood - Skin Skin exam: Present: warm, dry, intact Course Vital Signs Temperature 99.1 F 09/13/18 18:04 Pulse Rate 60 09/13/18 18:04 Respiratory Rate 18 09/13/18 18:04 Blood Pressure 152/91 09/13/18 18:04 O2 Sat by Pulse Oximetry 97 09/13/18 18:04 Temperature 99.1 F 09/13/18 18:04 Pulse Rate 51 09/13/18 20:08 Respiratory Rate 18 09/13/18 20:08 Blood Pressure 141/95 09/13/18 20:08 O2 Sat by Pulse Oximetry 98 09/13/18 20:08 Oxygen Delivery Oxygen Delivery Room Air Chest Pain - MDM Narrative Medical decision making narrative: Patient with history of one stent in place presents to the emergency department with chest pain that is similar to his previous chest pain requiring a stent. We will do a cardiac workup including EKG, chest x-ray, basic labs and troponin. Patient is complaining of a headache therefore we will also administer Tylenol. He has are even given his aspirin today and is refusing additional nitroglycerin as it caused him a severe headache. 1905 - patient's EKG is unchanged from previous, chest x-ray did not demonstrate any acute cardiopulmonary process, lab work was unremarkable. As he has history of further coronary artery disease that would require stenting it was suggested that the patient stayed to get a cardiac workup and possibly further stenting. 2030 - patient has been accepted by the hospitalist at this time. - Medical Records Medical records reviewed: Yes I reviewed the patient's medical records. - Lab Data Lab results reviewed: Yes I reviewed the patient's lab results. Result diagrams: 09/14/18 00:21 09/14/18 00:21 Lab Results 09/13/18 09/13/18 Range/Units 18:00 18:07 WBC 7.9 (4.3-11.1) K/mcL RBC 4.55 (4.19-5.50) M/mcL Hgb 14.8 (12.9-16.9) g/dL Hct 43.3 (37.5-50.1) % MCV 95.2 (83.0-100.0) fL MCH 32.5 (28.0-33.3) pg MCHC 34.2 (31.6-35.5) g/dL RDW 12.6 (11.5-14.5) % Plt Count 211 (140-400) K/mcL MPV 11.1 (9.4-12.4) fL Immature Gran % 0.3 (0-4) % Seg Neutrophils % 47.5 % Lymphocytes % 39.4 % Monocytes % 6.3 % Eosinophils % 6.1 % Basophils % 0.4 % Neutrophils # 3.8 (1.6-8.9) K/mcL Lymphocytes # 3.1 (0.6-4.6) K/mcL Monocytes # 0.5 (0.0-1.3) K/mcL Eosinophils # 0.5 (0.0-0.6) K/mcL Basophils # 0.0 (0.0-0.2) K/mcL Sodium 139 (136-145) mEq/L Potassium 4.1 (3.5-5.1) mEq/L Chloride 107 (98-107) mEq/L Carbon Dioxide 24 (23-29) mEq/L BUN 23 H (6-20) mg/dL Creatinine 1.29 (0.70-1.30) mg/dL Est GFR ( Amer) > 60 (> 60) Est GFR (Non-Af Amer) > 60 (> 60) BUN/Creatinine Ratio 18 (6-26) Glucose 92 (70-105) mg/dL Calculated Osmolality 291 (280-300) Calcium 9.3 (8.6-10.3) mg/dL Magnesium 1.8 (1.6-2.6) mg/dL Troponin I < 0.03 (< 0.04) ng/mL - Radiology Data Radiology results reviewed: Yes I reviewed the patient's radiology results. - EKG Data EKG attestation: Yes I reviewed and interpreted this EKG. EKG results narrative: EKG obtained at 18:02 on 09/13/2018 Heart rate 59 bpm, IN interval 169, QRS duration 96, QTC 46, QTC 43 Sinus rhythm with borderline ST segment depressions in leads V5 and V6 as well as lead 2. These are not significantly changed when compared with previous EKG from 11 months ago. Heart Score - Score History: Moderately Suspicious EKG: Non Specific repolarisation Disturbance Age: Less than 45 Risk Factors: Equal/Greater than 3 risk factor or history of atherosclerotic disease Troponin: Less than normal limit HEART Score Total: 4 Attestation Statement - Attestation Attestation: I have seen this patient with the resident physician, I have personally evaluated this patient. I had reviewed the chart and document dictation by the resident physician and aM in agreement with the information documented by the resident physician. Please see documentation by the resident physician for complete chart including past medical history, family medical history, review of systems, current history and physical and laboratory and imaging studies. I was present for all procedures, provided direct supervision for all procedures, was present for the entirety of all procedures and provided direct guidance during the procedures. Please see documentation by the resident physician for any procedures performed. I have reviewed all interpretations of EKGs, and reviewed all EKGs performed on patient's as well. I have also reviewed reports of imaging as provided by radiology.
[2018-09-13] MEDS: Nicotine 21 MG PATCH.TD24 TD SCH (19:45)
--- NOTE | 2018-09-13 19:55 | Emergency Department Note ---
Disposition Clinical Impression: Chest pain Disposition: Home, Self-Care Condition: Fair Referrals: Delia Dow CNP [Primary Care Provider] - Forms: ED Satisfaction Letter Time of Disposition: 19:55 General Adult HPI - General Chief complaint: ED Chest Pain Stated complaint: chest pain,DWIGHT Time Seen by Provider: 09/13/18 17:55 Source: patient Mode of arrival: ambulatory Limitations: no limitations Nursing Notes Reviewed: Yes Vital Signs Reviewed: Yes - History of Present Illness Pain Scale: 5 - Related Data Home Medications Medication Instructions Recorded Confirmed ALPRAZolam [Xanax 1 MG Tablet] 1 mg PO TID PRN 07/22/16 09/13/18 Amlodipine Besylate 10 mg PO DAILY 07/22/16 09/13/18 Carvedilol [Coreg] 12.5 mg PO BID 07/22/16 09/13/18 Omeprazole [PriLOSEC] 20 mg PO BID PRN 07/22/16 09/13/18 Atorvastatin [Lipitor] 40 mg PO HS 09/21/17 09/13/18 Gabapentin [Neurontin] 600 mg PO TID 09/21/17 09/13/18 Metformin HCl 1,000 mg PO BID 09/25/17 09/13/18 Vortioxetine Hydrobromide 10 mg PO DAILY 09/25/17 09/13/18 [Trintellix] Spironolactone 09/13/18 Previous Rx's Medication Instructions Recorded OxyCODONE/APAP 10/325 [Percocet 1 each PO Q6HR PRN #39 tablet 07/22/16 10/325 MG] Aspirin Enteric Coated [Aspirin EC] 81 mg PO DAILY #30 tablet. 09/22/17 Ticagrelor [Brilinta] 90 mg PO BID #60 tablet 09/22/17 Allergies Allergy/AdvReac Type Severity Reaction Status Date / Time No Known Allergies Allergy Verified 09/25/17 16:28 Constitutional: Denies: fever, chills, weakness Cardiovascular: Reports: chest pain. Denies: palpitations, dyspnea on exertion, orthopnea, edema Respiratory: Denies: cough, dyspnea, wheezes Gastrointestinal: Denies: abdominal pain, nausea, vomiting, diarrhea Genitourinary: Denies: dysuria, hematuria Musculoskeletal: Denies: back pain, neck pain Integumentary: Denies: rash Neurological: Denies: headache Endocrine: Denies: fatigue Past Medical History - Past Medical History Medical history: Reports: coronary artery disease, diabetes, hyperlipidemia, hypertension, myocardial infarction, renal disease Surgical history: Reports: non-contributory Psychiatric history: Reports: anxiety, PTSD, previous psychiatric hosp italization - Social History Smoking Status: Current every day smoker Smokeless Tobacco Status: No Alcohol use: Reports: occasionally Drug use: Reports: none Physical Exam - General Limitations: no limitations General appearance: alert, in no apparent distress Course Vital Signs Temperature 99.1 F 09/13/18 18:04 Pulse Rate 60 09/13/18 18:04 Respiratory Rate 18 09/13/18 18:04 Blood Pressure 152/91 09/13/18 18:04 O2 Sat by Pulse Oximetry 97 09/13/18 18:04 Temperature 99.1 F 09/13/18 18:04 Pulse Rate 55 09/13/18 18:39 Respiratory Rate 18 09/13/18 18:04 Blood Pressure 126/74 09/13/18 18:39 O2 Sat by Pulse Oximetry 98 09/13/18 18:39 Oxygen Delivery Oxygen Delivery Room Air Medical Decision Making - Lab Data Result diagrams: 09/13/18 18:07 09/13/18 18:00 Lab Results 09/13/18 09/13/18 Range/Units 18:00 18:07 WBC 7.9 (4.3-11.1) K/mcL RBC 4.55 (4.19-5.50) M/mcL Hgb 14.8 (12.9-16.9) g/dL Hct 43.3 (37.5-50.1) % MCV 95.2 (83.0-100.0) fL MCH 32.5 (28.0-33.3) pg MCHC 34.2 (31.6-35.5) g/dL RDW 12.6 (11.5-14.5) % Plt Count 211 (140-400) K/mcL MPV 11.1 (9.4-12.4) fL Immature Gran % 0.3 (0-4) % Seg Neutrophils % 47.5 % Lymphocytes % 39.4 % Monocytes % 6.3 % Eosinophils % 6.1 % Basophils % 0.4 % Neutrophils # 3.8 (1.6-8.9) K/mcL Lymphocytes # 3.1 (0.6-4.6) K/mcL Monocytes # 0.5 (0.0-1.3) K/mcL Eosinophils # 0.5 (0.0-0.6) K/mcL Basophils # 0.0 (0.0-0.2) K/mcL Sodium 139 (136-145) mEq/L Potassium 4.1 (3.5-5.1) mEq/L Chloride 107 (98-107) mEq/L Carbon Dioxide 24 (23-29) mEq/L BUN 23 H (6-20) mg/dL Creatinine 1.29 (0.70-1.30) mg/dL Est GFR ( Amer) > 60 (> 60) Est GFR (Non-Af Amer) > 60 (> 60) BUN/Creatinine Ratio 18 (6-26) Glucose 92 (70-105) mg/dL Calculated Osmolality 291 (280-300) Calcium 9.3 (8.6-10.3) mg/dL Magnesium 1.8 (1.6-2.6) mg/dL Troponin I < 0.03 (< 0.04) ng/mL Attestation Statement - Attestation Attestation: I have seen this patient with the resident physician, I have personally evaluated this patient. I had reviewed the chart and document dictation by the resident physician and aM in agreement with the information documented by the resident physician. Please see documentation by the resident physician for complete chart including past medical history, family medical history, review of systems, current history and physical and laboratory and imaging studies. I was present for all procedures, provided direct supervision for all procedu res, was present for the entirety of all procedures and provided direct guidance during the procedures. Please see documentation by the resident physician for any procedures performed. I have reviewed all interpretations of EKGs, and reviewed all EKGs performed on patient's as well. I have also reviewed reports of imaging as provided by radiology. Patient presented emergency Department with chief complaint chest pain. Patient states that the chest pain woke him up from sleep this morning and never went significantly away until later on he states he went to an outside facility, they checked everything it was all normal they wanted to transfer him to be admitted but he had to go get his children, so he signed out AMA and he came back to be evaluated he states this chest pain is pretty much gone now he states it is a 1 or a 2 out of 10 but he states that the chest pain did remind him of when he had to have a stent placed in his heart about a year ago. Denies fevers chills cough or sputum production states he felt a little bit short of breath earlier does not currently feel short of breath. Chest pain was central in nature felt like a rope tied around his chest. EKG is a normal sinus rhythm, no evidence of acute ischemia dysrhythmia or hyperkalemia as interpreted by myself, previous EKG was from when he had his stent placed, and was with prominent ST depressions in the inferior leads, these are no longer visualized. No acute findings as interpreted by myself with no evidence of abnormal intervals or acute ST segment elevation myocardial infarction. Basic laboratory studies were all within acceptable limits chest x-ray as interpreted by radiology was without any acute findings. Cardiac enzymes were negative. Patient was admitted for further evaluation and management of chest pain. I did review his chart approximate one year ago he did have 100% RCA occlusion requiring stenting.
[2018-09-13] MEDS ORDERED: *HR* OxyCODONE/APAP 10/325 TABLET PO STA (20:57)
[2018-09-13] MEDS ORDERED: ALPRAZolam 1 MG TABLET PO PRN (22:31)
[2018-09-13] MEDS ORDERED: Gabapentin 300 MG CAPSULE PO SCH (22:45)
[2018-09-13] MEDS ORDERED: D5% in Water 1,000 ML IVC PRN (22:48)
[2018-09-13] MEDS ORDERED: *HR* Dextrose 50 % in Water (Syg) 50 ML SYRINGE IVP PRN (22:48)
[2018-09-13] MEDS ORDERED: Dextrose Gel 15 GM/37.5 ML TUBE PO PRN ×2 (22:48)
[2018-09-13] MEDS ORDERED: Acetaminophen 325 MG TABLET PO PRN (22:52)
[2018-09-13] MEDS ORDERED: Ondansetron 4 MG/2 ML VIAL IVP PRN (22:52)
[2018-09-13] MEDS ORDERED: traMADol 50 MG TABLET PO PRN (22:52)
[2018-09-13] MEDS ORDERED: Naloxone 0.4 MG/ML INJ IVP PRN (22:52)
[2018-09-13] MEDS ORDERED: *HR* OxyCODONE Immed Rel 5 MG TABLET PO PRN (22:52)
[2018-09-13] MEDS ORDERED: Insulin LISPRO 300 UNITS/3 ML VIAL SQ SCH (23:00)
[2018-09-13] MEDS: Insulin LISPRO 300 UNITS/3 ML VIAL SQ SCH (23:25)
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
[2018-09-14 02:06] LABS: Hematocrit 45.3 % (37.5-50.1); Hemoglobin 15.3 g/dL (12.9-16.9); Mean Corpuscular HGB Conc 33.8 g/dL (31.6-35.5); Mean Corpuscular Hemoglobin 32.2 pg (28.0-33.3); Mean Corpuscular Volume 95.4 fL (83.0-100.0); Mean Platelet Volume 11.8 fL (9.4-12.4); Platelet Count 201 K/mcL (140-400); Red Blood Count 4.75 M/mcL (4.19-5.50); Red Cell Distribution Width 12.6 % (11.5-14.5); White Blood Count 7.3 K/mcL (4.3-11.1)
[2018-09-14 02:16] LABS: Prothrombin Time 11.6 Seconds (9.4-12.1)
[2018-09-14 02:26] LABS: BUN/Creatinine Ratio 18 (6-26); Blood Urea Nitrogen 22 mg/dL (6-20); Calcium 9.5 mg/dL (8.6-10.3); Carbon Dioxide 27 mEq/L (23-29); Chloride 104 mEq/L (98-107); Chol/HDL Ratio 5.3 (0-4.9); Cholesterol 190 mg/dL (< 200); Glucose 87 mg/dL (70-105); HDL Cholesterol 36 mg/dL (40-59); LDL Cholesterol,Calculated 84 mg/dL (0-99); Osmolality,Calculated 293 (280-300); Potassium 3.3 mEq/L (3.5-5.1); Sodium 140 mEq/L (136-145); Triglycerides 350 mg/dL (< 150); eGFR For African Americans > 60 (> 60); eGFR For Non-African Americans > 60 (> 60)
[2018-09-14 02:29] LABS: Troponin I < 0.03 ng/mL (< 0.04)
[2018-09-14 02:44] LABS: Thyroid Stimulating Hormone 3.336 mcIU/mL (0.340-5.600)
[2018-09-14] MEDS: Insulin LISPRO 300 UNITS/3 ML VIAL SQ SCH (05:38)
[2018-09-14] MEDS: Potassium Chloride 20 MEQ, Lidocaine 1% 2 ML in D5% in Water 250 ML IVPB ONE ×2 (05:55→06:26)
[2018-09-14] MEDS ORDERED: Insulin LISPRO 300 UNITS/3 ML VIAL SQ SCH ×3 (06:21→07:30)
[2018-09-14 07:10] LABS: Estimated Average Glucose 114 mg/dl
[2018-09-14 07:37] VITALS: BP 161/91
--- NOTE | 2018-09-14 08:10 | Internal Med Progress Note ---
Hospitalist Progress Note - Encounter Date of Encounter: 09/14/18 Time of Encounter: 08:00 - Exam Vitals: Temp Pulse Resp BP Pulse Ox 98.1 F 48 12 161/91 99 09/14/18 07:30 09/14/18 07:30 09/14/18 07:30 09/14/18 07:30 09/14/18 07:30 Exam: Patient examined at bedside. Patient resting in bed and reporting no chest pain or any other symptoms at this time. VS: temp 98.0F, HR 64, RR 22, BP 171/94, SPO2 98% on room air. - Assessment and Plan (1) Chest pain Current Visit: Yes Status: Acute Assessment and Plan: Acute CP that began at approximately 04:00 this morning as severe pressure which wrapped around from his back across his chest. Patient reports symptoms felt like his previous heart attack. Associated symptoms: Nausea and diaphoresis. No alleviating factors, no aggravating factors. Last echo on 09/21/17 which patient stopped. Patient reports severe adverse reaction during previous nuclear stress test and states he is unable to do them. Pt. also reports his last exercise stress test was inconclusive d/t HR not elevating to appropriate level. LHC on showed lesion in mid LAD pre-stenosis 60 and lesion found in mid RCA pre-stenosis 100. Additional lesions found and distal RCA pre-stenosis 60, right PDA pre-stenosis 40, and RPlB pre-stenosis 50. Initial troponin less than 0.03. Trending. ASA. Lipitor 40 mg by mouth daily. Patient reports he is unable to take nitroglycerin due to severe headaches. Echocardiogram ordered. Nothing by mouth at midnight for a.m. exercise stress test if troponins remain within normal limits. Consider cardiology consult if troponins, echocardiogram, and/or stress test results abnormal. Patient is high risk for cardiac event and further morbidity due to current unstable angina, history of previous [place] requiring stent placement as well as additional blockages; and current risk factors of tobacco abuse, obesity, HLD, HTN, CAD, and diabetes. Observation. (2) PTSD (post-traumatic stress disorder) Current Visit: Yes Status: Chronic (3) GERD (gastroesophageal reflux disease) Current Visit: Yes Status: Chronic (4) Tobacco abuse Current Visit: Yes Status: Chronic (5) Anxiety Current Visit: Yes Status: Chronic (6) CAD (coronary artery disease) Current Visit: Yes Status: Chronic (7) Diabetes Current Visit: Yes Status: Chronic (8) HTN (hypertension) Current Visit: Yes Status: Chronic (9) HLD (hyperlipidemia) Current Visit: Yes Status: Chronic (10) Previous myocardial infarction older than 8 weeks Current Visit: Yes Status: Resolved (11) CKD (chronic kidney disease) Current Visit: Yes Status: Chronic (12) DVT prophylaxis Current Visit: Yes Status: Acute Assessment and Plan: Continue pts. Brilinta for DVT prophylaxis. Monitor pt. for signs of bleeding. - Time Spent with Patient Total time spent is greater than 50% in coordination of care (as documented) at patient's floor/unit and/or counseling patient: Internal Medicine: Result - Labs CBC & Chem 7: 09/14/18 00:21 09/14/18 00:21 Labs: Short CBC 09/13/18 09/14/18 Range/Units 18:07 00:21 WBC 7.9 7.3 (4.3-11.1) K/mcL Hgb 14.8 15.3 (12.9-16.9) g/dL Hct 43.3 45.3 (37.5-50.1) % Plt Count 211 201 (140-400) K/mcL Neutrophils # 3.8 (1.6-8.9) K/mcL BMP 09/13/18 09/14/18 18:00 00:21 Sodium 139 140 Potassium 4.1 3.3 L Chloride 107 104 Carbon Dioxide 24 27 BUN 23 H 22 H Creatinine 1.29 1.24 Glucose 92 87 Calcium 9.3 9.5 Cardiac Enzymes 09/13/18 09/14/18 09/14/18 Range/Units 18:00 00:21 06:46 Troponin I < 0.03 < 0.03 < 0.03 (< 0.04) ng/mL - ABG Interpretation ABG results: PT/INR, D-dimer PT 11.6 Seconds (9.4-12.1) 09/14/18 00:21 - Impressions Impressions Chest X-Ray 09/13/18 18:00 IMPRESSION: Stable negative chest. D/ / Augie Bartholomew MD / Augie Bartholomew MD Interpreting Provider: Augie Bartholomew MD Consult Discharge Plan - Plan Referrals: Delia Dow CNP [Primary Care Provider] - (1) Chest pain Qualifiers: Chest pain type: other chest pain Qualified Code(s): R07.89 - Other chest pain; R07.8 - Other chest pain (3) GERD (gastroesophageal reflux disease) Qualifiers: Esophagitis presence: esophagitis presence not specified Qualified Code(s): K21.9 - Gastro-esophageal reflux disease without esophagitis (6) CAD (coronary artery disease) Qualifiers: Coronary Disease-Associated Artery/Lesion type: [place] artery [place] vs. transplanted heart: [place] heart Associated angina: angina presence unspecified Qualified Code(s): I25.10 - Atherosclerotic heart disease of [place] coronary artery without angina pectoris (7) Diabetes Qualifiers: Diabetes mellitus type: type 2 Diabetes mellitus halfway insulin use: without halfway use Diabetes mellitus complication status: with neurologic complications Diabetes mellitus complication detail: with unspecified neuropathy Qualified Code(s): E11.40 - Type 2 diabetes mellitus with diabetic neuropathy, unspecified (8) HTN (hypertension) Qualifiers: Hypertension type: essential hypertension Qualified Code(s): I10 - Essential (primary) hypertension (9) HLD (hyperlipidemia) Qualifiers: Hyperlipidemia type: pure hypercholesterolemia Qualified Code(s): E78.00 - Pure hypercholesterolemia, unspecified; E78.0 - Pure hypercholesterolemia (11) CKD (chronic kidney disease) Qualifiers: Chronic kidney disease stage: stage 1 Qualified Code(s): N18.1 - Chronic kidney disease, stage 1
[2018-09-14] MEDS ORDERED: Aspirin Enteric Coated 81 MG Tablet PO SCH (09:00)
[2018-09-14] MEDS ORDERED: Lisinopril 20 MG TABLET PO SCH (09:00)
[2018-09-14] MEDS ORDERED: amLODIPine 5 MG TABLET PO SCH (09:00)
[2018-09-14] MEDS ORDERED: *HR* Ticagrelor 90 MG TABLET PO SCH (09:00)
[2018-09-14] MEDS ORDERED: Spironolactone 25 MG TABLET PO SCH (09:00)
[2018-09-14] MEDS ORDERED: (Vortioxetine Hydrobromide [Trintellix] 10 MG) PO SCH (09:00)
[2018-09-14] MEDS: Nicotine 21 MG PATCH.TD24 TD SCH (09:55)
[2018-09-14] MEDS ORDERED: Nitroglycerin 0.4 MG TAB.SUBL SL PRN (10:01)
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
--- NOTE | 2018-09-14 11:13 | Discharge Summary ---
Date of Encounter: 09/14/18 Time of Encounter: 11:00 - Discharge Diagnosis (1) Chest pain Priority: Primary Status: Acute Assessment and Plan: 43 year old male w/PMH of CAD, diabetes controlled with oral antihyperglycemic medications, HLD, HTN, previous OH with stent placement 1 approximately 11 months ago, hx of CKD, anxiety, PTSD, previous psychiatric hospitalization, and current tobacco abuse presents from the ED w/CC of chest pain that began at approximately 04:00 this morning as severe pressure which wrapped around from his back across his chest. Patient reports symptoms felt like his previous heart attack. Associated symptoms: Nausea and diaphoresis. No alleviating factors, no aggravating factors. He was assessed with chest pain r/o OH. He had an echo done that showed no wall motion abnormalities. He was offered a stress test but declined. He was seen by cardiology who offered further cardiac testing vs outpatient follow up and he opted to follow up as an ooutaptient. He was discharged in a stable condition. Potassium was replaced prior to discharge Qualifiers: Chest pain type: other chest pain Qualified Code(s): R07.89 - Other chest pain; R07.8 - Other chest pain (2) PTSD (post-traumatic stress disorder) Priority: Primary Status: Chronic (3) GERD (gastroesophageal reflux disease) Priority: Primary Status: Chronic Qualifiers: Esophagitis presence: esophagitis presence not specified Qualified Code(s): K21.9 - Gastro-esophageal reflux disease without esophagitis (4) Tobacco abuse Priority: Primary Status: Chronic (5) Anxiety Priority: Primary Status: Chronic (6) CAD (coronary artery disease) Priority: Primary Status: Chronic Qualifiers: Coronary Disease-Associated Artery/Lesion type: [place] artery [place] vs. 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 Diabetes mellitus complication status: with neurologic complications Diabetes mellitus complication detail: with unspecified neuropathy Qualified Code(s): E11.40 - Type 2 diabetes mellitus with diabetic neuropathy, unspecified (8) HTN (hypertension) Priority: Primary Status: Chronic Qualifiers: Hypertension type: essential hypertension Qualified Code(s): I10 - Essential (primary) hypertension (9) HLD (hyperlipidemia) Priority: Primary Status: Chronic Qualifiers: Hyperlipidemia type: pure hypercholesterolemia Qualified Code(s): E78.00 - Pure hypercholesterolemia, unspecified; E78.0 - Pure hypercholesterolemia (10) CKD (chronic kidney disease) Priority: Primary Status: Chronic Qualifiers: Chronic kidney disease stage: stage 1 Qualified Code(s): N18.1 - Chronic kidney disease, stage 1 (11) DVT prophylaxis Priority: Primary Status: Acute Hospital course: Mr. Fountain is a 43 year old male - Time Spent with Patient Total time spent providing and/or coordinating discharge services: - Discharge Medications Prescriptions: New Nicotine Patch [Nicoderm] 21 mg TD DAILY #60 patch.td24 Nitroglycerin 0.4 mg SL Q5MPRN PRN #60 tab.subl PRN Reason: Chest Pain Continued Carvedilol [Coreg] 12.5 mg PO BID Omeprazole [PriLOSEC] 20 mg PO BID PRN PRN Reason: Heartburn ALPRAZolam [Xanax 1 MG Tablet] 1 mg PO BID PRN PRN Reason: Anxiety Amlodipine Besylate 10 mg PO DAILY Atorvastatin [Lipitor] 40 mg PO HS Gabapentin [Neurontin] 600 mg PO TID Ticagrelor [Brilinta] 90 mg PO BID #60 tablet Aspirin Enteric Coated [Aspirin EC] 81 mg PO DAILY #30 tablet. Metformin HCl 1,000 mg PO BID Vortioxetine Hydrobromide [Trintellix] 10 mg PO DAILY Spironolactone [Aldactone] 12.5 mg PO DAILY #0 Lisinopril [Zestril] 40 mg PO DAILY No Action ALPRAZolam [Xanax 1 MG Tablet] 0.5 mg PO DAILY PRN PRN Reason: Anxiety Tizanidine HCl 4 mg PO BID PRN PRN Reason: Pain Ibuprofen [Motrin] 600 mg PO DAILY PRN PRN Reason: Pain Home Medications: ALPRAZolam [Xanax 1 MG Tablet] 1 mg PO BID PRN 07/22/16 [History] Amlodipine Besylate 10 mg PO DAILY 07/22/16 [History] Carvedilol [Coreg] 12.5 mg PO BID 07/22/16 [History] Omeprazole [PriLOSEC] 20 mg PO BID PRN 07/22/16 [History] Atorvastatin [Lipitor] 40 mg PO HS 09/21/17 [History] Gabapentin [Neurontin] 600 mg PO TID 09/21/17 [History] Aspirin Enteric Coated [Aspirin EC] 81 mg PO DAILY #30 tablet. 09/22/17 [Rx] Ticagrelor [Brilinta] 90 mg PO BID #60 tablet 09/22/17 [Rx] Metformin HCl 1,000 mg PO BID 09/25/17 [History] Vortioxetine Hydrobromide [Trintellix] 10 mg PO DAILY 09/25/17 [History] Lisinopril [Zestril] 40 mg PO DAILY 09/13/18 [History] Spironolactone [Aldactone] 12.5 mg PO DAILY #0 09/13/18 [History] ALPRAZolam [Xanax 1 MG Tablet] 0.5 mg PO DAILY PRN 09/14/18 [History] Ibuprofen [Motrin] 600 mg PO DAILY PRN 09/14/18 [History] Nicotine Patch [Nicoderm] 21 mg TD DAILY #60 patch.td24 09/14/18 [Rx] Nitroglycerin 0.4 mg SL Q5MPRN PRN #60 tab.subl 09/14/18 [Rx] Tizanidine HCl 4 mg PO BID PRN 09/14/18 [History] Allergies/Adverse Reactions: Allergy/AdvReac Type Severity Reaction Status Date / Time No Known Allergies Allergy Verified 09/25/17 16:28 Date of admission: 09/13/18 21:08 Primary care physician: TONY Wall Consults: 09/14/18 08:08 Consult to Cardiology [CONS] Routine Comment: Consulting Provider: Cardiology Lindsay Reason for Consult: chest pain with previous PCI, unable to tolerate nuclear stress test, last exercise stress test non conclusive Call Completed: No - Constitutional Vitals: Temp Pulse Resp BP Pulse Ox 98.1 F 48 12 161/91 99 09/14/18 07:30 09/14/18 07:30 09/14/18 07:30 09/14/18 07:30 09/14/18 07:30 General appearance: Present: cooperative, A&O X 3, pleasant, no acute distress, obese, answers questions appropriately Exam: NAD - Head Head exam: Present: atraumatic, normocephalic - Eye Eye exam: Present: PERRL, conjuntiva pink, sclera anicteric Pupils: Present: PERRL - Neck Neck exam general surgery: Present: supple, trachea midline. Absent: lymphadenopathy - Respiratory Respiratory exam: Present: CTAB. Absent: accessory muscle use, rales, rhonchi, wheezes - Cardiovascular Cardiovascular exam: Present: RRR, +S1, +S2. Absent: diastolic murmur, gallop, rubs, systolic murmur - GI/Abdominal GI/Abdominal exam: Present: normal bowel sounds, soft, no peritoneal signs. Absent: distended, tenderness - Extremities Exam Extremities exam: Present: warm, radial pulses palpable and symmetrical. Absent: calf tenderness, cyanotic, pedal edema - Neurological Exam Neurological exam: Present: CN II-XII intact, oriented X3, no focal deficits. Absent: pronater drift, facial droop, speech deficit - Skin Skin exam: Present: dry, intact - Patient Status Disposition: Home, Self-Care Condition: Fair - Discharge Instructions Instructions: Nicotine (Absorbed through the skin), Coronary Artery Disease (DC), Coronary Artery Disease (GEN) Follow Up With: Will Ariza MD [Partnered Physician] - (submitting a web request for Dr Ariza's office to call patient with a hospital follow up appointment [facility]- 11:44 09/14/18) Delia Dow CNP [Primary Care Provider] - 09/21/18 12:15 pm
[2018-09-14] MEDS ORDERED: Potassium Chloride Elixir 20 MEQ/15 ML UDC PO ONE (11:15)
--- NOTE | 2018-09-14 14:44 | Electrocardiograph Report ---
[address] [address] Test Date: 2018-09-13 Pat Name: Carmelina Fountain Department: EXAM9 Room: 2NE26 Gender: M Managed Care Nurse: : 1975 Requested By: Lisa Persaud Order Number: [id number] Reading MD: Will Ariza Measurements Intervals [place] Rate: 59 P: 5 ND: 169 QRS: 44 QRSD: 96 T: 57 QT: 406 QTc: 403 Interpretive Statements Sinus rhythm Borderline repolarization abnormality BASELINE ARTIFACT Electronically Signed On 09-14-2018 14:42:45 EDT by Will Ariza
== END 2018-09-14 12:10 | disposition home or self-care (01) ==
LOC: 2NENU 17:54 → EMEROOARM 17:54 → 2NENU 21:21
PROVIDERS: ADMIT Internal Medicine; ATTEND Internal Medicine